=== PATIENT | male | born 1970 | race American Indian/Alaskan Native ===

== ENCOUNTER 2017-05-30 17:09 | Emergency (ER) | payer OTHER ==
[2017-05-30 17:15] VITALS: RESP 16; TEMP 97.7
--- NOTE | 2017-05-30 17:45 | EDPHY ---
HPI/HX/ROS/PE/MDM - Data Points Imaging: Discussed imaging studies w/ house calls nurse practitioner Radiologist Narrative: CHIEF COMPLAINT: Nausea, diarrhea, fall with head injury HISTORY OF PRESENT ILLNESS: The patient is a 47 y/o male arriving with his with complaints of nausea, diarrhea, and head injury. His son and daughter became sick with nausea, vomiting, and diarrhea yesterday. He became sick with diarrhea and nausea around midnight last night. This afternoon, after developing severe nausea feeling that he was going to vomit, he fainted and fell forward, striking his head. He was unconscious for 20 seconds per his . Patient does describe feeling that he might faint, feeling significantly nauseous, prior to the syncopal episode. No reports palpitations, chest pain, or shortness of breath prior to the event. No seizure activity noted. He also has had a cough for a couple days. He has associated headache. He denies fever, blood in his diarrhea , or any other associated symptoms. No fever, chills, chest pain, shortness of breath, palpitations, vomiting, urinary complaints, lightheadedness. REVIEW OF SYSTEMS: Aside from elements discussed in the HPI, a comprehensive 10-point review of systems was reviewed and is negative. PAST MEDICAL HISTORY: Denies SOCIAL HISTORY: at bedside, lives in [facility] VITAL SIGNS: Reviewed by me GENERAL: Well-developed, well-nourished, resting comfortably in no respiratory distress. In a cervical collar. HEENT: Abrasion to the right forehead, right cheek, right nares. Eyes: No icterus, no injection. THU. EOMI. Mouth: Elliptical shaped laceration to right inner lip, teeth intact, occlusion intact. Moist mucous membranes. No erythema or lesions. Neck: Midline cervical tenderness, in a cervical collar. LUNGS: Clear to auscultation bilaterally, no wheezes, rhonchi or rales. CARDIAC: Regular rate and rhythm, no rubs, murmurs or gallops. ABDOMEN: Soft, nontender, nondistended, bowel sounds normal. BACK: No CVA tenderness. EXTREMITIES: No trauma. No edema. Range of motion is normal throughout. NEURO: Alert and oriented, grossly nonfocal. SKIN: Warm and dry, no rash. PSYCHIATRIC: Normal mentation, no agitation. (Yadira Marinelli) ED Course: Procedure: Laceration repair. Verbal consent was obtained from the patient. The 2 cm laceration on the mucosal surface of the right lower lip was anesthetized in the usual fashion. The wound was irrigated, draped and explored to its base with a gloved finger. There were no deep structures involved. No tendon injury was identified. The wound was repaired with 5 0 Vicryl, 4 simple interrupted sutures. The wound repair was simple. The procedure was performed by myself. (Wai Bee) The patient presents with headache, nausea, diarrhea, and multiple abrasions after a syncopal episode. The patient fainted and lost consciousness for about 20 sec after having nausea and diarrhea all night. During the syncopal episode, he fell forward, striking his head. Plan for head and neck CT, and labs. CT is normal. Labs are unremarkable. Laceration will be stitched by RAYA Neves. Reports feeling improved following fluid resuscitation. Patient was discharged with Zofran to use as needed for ongoing nausea. He has had no diarrhea while in the emergency department. Influenza screen is negative. The patient can be released with concussion protocol. Follow-up instructions and return precautions given. The patient agrees to this course of action. ( Yadira Marinelli) MDM: Differential diagnosis of this patient's trauma was considered including but not limited to intracranial injury, spinal injury, intraoral injury, lacerations , abrasions, and contusions. Differential diagnosis the patient's syncope was considered including but not limited to vasovagal syncope, arrhythmia, dehydration, and blood loss. Differential for the patient's diarrhea was considered including but not limited to gastroenteritis, colitis, influenza, dietary indiscretion, viral syndrome, food poisoning. (Yadira Marinelli) - Data Points Imaging Results: Imaging Impressions Cervical Spine CT 05/30/17 17:50 Impression: 1. No acute fracture or soft tissue swelling. 2. If the patient has persistent pain or neurologic deficits, consider cervical spine MRI. Findings discussed with Emergency Department physician, Yadira Marinelli M.D., on May 30, [address] 05/30/17 17:50 Impression: 1. Negative. No acute fracture or evidence of acute intracranial injury. 2. Minimal ethmoid sinus disease. Findings discussed with Emergency Department physician, Yadira Marinelli M.D., at May 30, 2017 at 1840. Laboratory Results: Laboratory Results 05/30/17 18:00 05/30/17 18:00 05/30/17 05/30/17 05/30/17 18:30 18:00 18:00 WBC 11.40 10^3/uL H 10^3/uL (3.80-9.50) RBC 5.83 10^6/uL 10^6/uL (4.40-6.38) Hgb 17.9 g/dL H g/dL (13.7-17.5) Hct 50.3 % % (40.0-51.0) MCV 86.3 fL fL (81.5-99.8) MCH 30.7 pg pg (27.9-34.1) MCHC 35.6 g/dL g/dL (32.4-36.7) RDW 12.3 % % (11.5-15.2) Plt Count 229 10^3/uL 10^3/uL (150-400) MPV 9.9 fL fL (8.7-11.7) Neut % (Auto) 86.6 % H % (39.3-74.2) Lymph % (Auto) 6.9 % L % (15.0-45.0) [place] % (Auto) 5.1 % % (4.5-13.0) Eos % (Auto) 0.8 % % (0.6-7.6) Baso % (Auto) 0.3 % % (0.3-1.7) Nucleat RBC Rel Count 0.0 % % (0.0-0.2) Absolute Neuts (auto) 9.88 10^3/uL H 10^3/uL (1.70-6.50) Absolute Lymphs (auto) 0.79 10^3/uL L 10^3/uL (1.00-3.00) Absolute Monos (auto) 0.58 10^3/uL 10^3/uL (0.30-0.80) Absolute Eos (auto) 0.09 10^3/uL 10^3/uL (0.03-0.40) Absolute Basos (auto) 0.03 10^3/uL 10^3/uL (0.02-0.10) Absolute Nucleated RBC 0.00 10^3/uL 10^3/uL (0-0.01) Immature Gran % 0.3 % % (0.0-1.1) Immature Gran # 0.03 10^3/uL 10^3/uL (0.00-0.10) Sodium 143 mEq/L mEq/L (135-145) Potassium 5.2 mEq/L mEq/L (3.5-5.2) Chloride 104 mEq/L mEq/L (97-110) Carbon Dioxide 27 mEq/l mEq/l (22-31) Anion Gap 12 mEq/L mEq/L (8-16) BUN 17 mg/dL mg/dL (7-23) Creatinine 1.2 mg/dL mg/dL (0.7-1.3) Estimated GFR > 60 Glucose 120 mg/dL H mg/dL (70-100) Calcium 9.8 mg/dL mg/dL (8.5-10.4) Nasal Influenza A PCR NEGATIVE FOR FLU A (NEGATIVE) Nasal Influenza B PCR NEGATIVE FOR FLU B (NEGATIVE) Medications Given: Discontinued Medications Fentanyl (Sublimaze) 50 mcg IVP EDNOW ONE Stop: 05/30/17 17:52 Last Admin: 05/30/17 17:59 Dose: 50 mcg Sodium Chloride (Ns) 1,000 mls @ 0 mls/hr IV ONCE ONE; Wide Open PRN Reason: Protocol Stop: 05/30/17 17:51 Last Admin: 05/30/17 17:58 Dose: 1,000 mls Ondansetron HCl (Zofran) 4 mg IVP EDNOW ONE Stop: 05/30/17 17:51 Last Admin: 05/30/17 17:59 Dose: 4 mg General Time Seen by Provider: 05/30/17 17:28 Initial Vital Signs: Initial Vital Signs Temperature (C) 36.5 C 05/30/17 17:12 Heart Rate 62 05/30/17 17:12 Respiratory Rate 16 05/30/17 17:12 Blood Pressure 136/62 H 05/30/17 17:12 O2 Sat (%) 95 05/30/17 17:12 O2 Delivery Mode Room Air Allergies/Adverse Reactions: No Known Allergies Allergy (Unverified 05/30/17 17:12) Home Medications: Medication Instructions Recorded NK [No Known Home Meds] 05/30/17 Departure - Departure Disposition: Home, Routine, Self-Care Clinical Impression: Syncope Qualifiers: Syncope type: unspecified Qualified Code(s): R55 - Syncope and collapse Head injury Qualifiers: Encounter type: initial encounter Qualified Code(s): S09.90XA - Unspecified injury of head, initial encounter Lip laceration Qualifiers: Encounter type: initial encounter Qualified Code(s): S01.511A - Laceration without foreign body of lip, initial encounter Diarrhea Qualifiers: Diarrhea type: unspecified type Qualified Code(s): R19.7 - Diarrhea, unspecified Condition: Good Instructions: Laceration (ED), Syncope (ED), Head Injury (ED), Acute Diarrhea ( ED) Additional Instructions: 1. For your nausea and diarrhea, I suggested you start with a bland diet and advance as tolerated. This means start with clear liquids such as water, Gatorade, juice, flat non- caffeinated soda. If you tolerate clear liquids, then you may add bland foods such as bananas, rice, or toast. If you do not have any worsening of your symptoms, you may begin to resume a regular diet. 2. Swish and spit with hydrogen peroxide and water 3 to 4 times a day until your lip laceration heals. Watch for signs of infection. 3. Return to the ED for persistent nausea, vomiting, diarrhea, recurrent episodes of fainting, fevers, bloody diarrhea, or other concerns. 4. Okay to take Zofran if needed for recurrent nausea. Referrals: Judy Joshi MD [[facility] [place] Primary Care Provider] - As per Instructions Report Scribed for: Yadira Marinelli Report Scribed by: Katerin Austin Date of Report: 05/30/17 Time of Report: 17:48 Physician Review and Approval Statement: Portions of this note were transcribed by a medical and health services manager. I personally performed a history, physical exam, medical decision making, and confirmed accuracy of information the transcribed note.
[2017-05-30] MEDS ORDERED: ONDANSETRON 4 MG/2 ML VIAL IVP ONE (17:50)
[2017-05-30] MEDS ORDERED: NS 1,000 ML IV ONE ×2 (17:50→20:00)
[2017-05-30] MEDS ORDERED: fentaNYL 100 MCG/2 ML INJ IVP ONE (17:51)
[2017-05-30 18:08] LABS: PLATELET COUNT 229 10^3/uL (150-400)
[2017-05-30 21:16] VITALS: BP 118/66; PULSE 100; O2SAT 92
[2017-05-30] MEDS ORDERED: ONDANSETRON 4MG PREPACK#2 BTL TAKEHOME ONE (21:24)
== END 2017-05-30 21:15 | disposition home or self-care (01) ==
PROC: 0CQ1XZZ Repair Lower Lip, External Approach (ICD-10-PCS; principal; 2017-05-30)
DX: S09.90XA Unspecified injury of head, initial encounter (principal); S01.511A Laceration without foreign body of lip, initial encounter; R55 Syncope and collapse; R19.7 Diarrhea, unspecified; W01.198A Fall on same level from slipping, tripping and stumbling with subsequent striking against other object, initial encounter; Y93.89 Activity, other specified
CPT/HCPCS: 96374; J2405; J3010